=== PATIENT | male | born 1935 | race Caucasian/White ===

== ENCOUNTER 2017-05-09 11:06 | Emergency (ER) | payer MEDICARE ==
[2017-05-09 12:41] LABS: BASOPHIL 0 % (0-2); EOSINOPHIL 0.5 % (0-7); HCT 34.1 % (42.0-52.0); HGB 11.9 g/dl (13.2-18.0); LYMPHOCYTE 6.5 % (15-48); MCH 39.1 pg (25.0-31.0); MCHC 34.9 g/dL (32.0-36.0); MCV 112.2 fL (78.0-100.0); MPV 11.2 fL (6.0-9.5); PLT 109 K/uL (150-400); RBC 3.04 M/uL (4.70-6.00); RDW 26.2 % (11.5-14.0); WBC 6.2 K/uL (4.0-10.5)
[2017-05-09 12:55] LABS: ALBUMIN 2.8 g/dL (3.4-4.8); CREATININE 1.4 mg/dL (0.7-1.2); POTASSIUM 4.5 mmol/L (3.5-5.1); TOTAL PROTEIN 6.8 g/dL (6.4-8.3)
[2017-05-09 13:00] LABS: BILIRUBIN - TOTAL 7.8 mg/dL (0.1-1.0)
== END 2017-05-09 13:26 | disposition home or self-care (01) ==
LOC: FER 11:06
PROVIDERS: Internal Medicine
DX: C78.5 Secondary malignant neoplasm of large intestine and rectum (principal); C22.8 Malignant neoplasm of liver, primary, unspecified as to type; E11.9 Type 2 diabetes mellitus without complications; I10 Essential (primary) hypertension; Z85.05 Personal history of malignant neoplasm of liver; Z88.8 Allergy status to other drugs, medicaments and biological substances; Z79.84 Long term (current) use of oral hypoglycemic drugs; Z79.899 Other long term (current) drug therapy
CPT/HCPCS: 36415; 71010; 80053; 82150; 83690; 85025; 99283